=== PATIENT | female | born 1955 | race Caucasian/White ===

== ENCOUNTER 2018-06-15 13:53 | Inpatient (IN) | payer SELFPAY ==
[~2018-06-15] VITALS: Ht 157.4 cm; Wt 78.6 kg
--- NOTE | ~2018-06-15 | PR ---
[place], [place] PROGRESS NOTE NAME: MEKHI MULLER UNIT #: [id number] ROOM: [facility] DOCTOR: YEIMI ODOM,RAHUL BIRTHDATE: [birth year] DOS: 06/18/2018 CARDIOLOGY PROGRESS NOTE REASON FOR VISIT: Atrial fibrillation and valvular heart disease. HISTORY OF PRESENT ILLNESS: The patient is symptomatically feeling better, less short of breath. She is still on CPAP. Denies any chest pain or palpitations. Heart rates are somewhat higher. No PND, no orthopnea. REVIEW OF SYSTEMS: Review of the 10 systems negative except as mentioned above. RHYTHM STRIPS: The patient has been into atrial fibrillation with a rapid ventricular rate. PHYSICAL EXAMINATION: VITAL SIGNS: Blood pressure 137/73, pulse 114, respiration rate is 20. Weight 78.5 kg, BMI 31.7. GENERAL: Alert, comfortable, in no acute distress. HEAD AND NECK: Neck supple, no distended neck veins. No carotid bruit. CHEST: Symmetrical, nontender. LUNGS: Few scattered rhonchi. Fair air entry bilaterally. HEART: Irregularly irregular. Grade 2/6 systolic murmur as well as grade 1/6 mid diastolic murmur. No palpable thrills. ABDOMEN: Benign, nontender. Bowel sounds normal. EXTREMITIES: Showed 1+ edema. Distal pulses palpable. SKIN: Warm and dry. No cyanosis, no clubbing. RECTAL: Deferred. GENITOURINARY: Deferred. MEDICATIONS AND ALLERGIES: Reviewed and labs reviewed. IMPRESSION: 1. New onset atrial fibrillation with rapid ventricular rate. 2. Valvular heart disease with aortic stenosis and also mitral stenosis. Echo is suboptimal. 3. Acute on chronic diastolic heart failure. 4. Hypertension. 5. Respiratory failure. 6. Urinary tract infection. RECOMMENDATIONS: 1. Increase Cardizem to 90 mg q.8 hours as well as give one dose of digoxin 0.25 mg IV for rate control. I discussed with Dr. Wise, crocheter hand and he thinks that she is improving from a pulmonary standpoint and she may be ready for a transesophageal echocardiogram on Wednesday to assess her valvular heart disease. 2. Based on her ALLIE findings, she may need to be transferred to [facility]. 3. No family at bedside at the time of my examination. [place], [place] PROGRESS NOTE NAME: MEKHI MULLER UNIT #: [id number] ROOM: [facility] DOCTOR: YEIMI ODOM,RAHUL BIRTHDATE: [birth year] 4. Continue Xarelto for her atrial fibrillation. Above treatment and plan discussed with the patient and all the questions answered. RAHUL JALLOH MD CM:JES [phone] RAHUL JALLOH MD 06/18/182220 interface
--- NOTE | ~2018-06-15 | PR ---
[place], [place] PROGRESS NOTE NAME: MEKHI MULLER UNIT #: [id number] ROOM: 408 DOCTOR: EHSAN WELCH MD,ZENA BIRTHDATE: [birth year] DOS: 06/24/2018 SUBJECTIVE: The patient has been noted comfortable at this time, resting, sitting on the bed. Shortness of breath continued to resolve progressively. Denies symptoms of chest pain or hemoptysis. Continued intravenous therapeutic unfractionated heparin and Coumadin concomitantly. OBJECTIVE: VITAL SIGNS: Recorded as normal temperature, respirations 16, heart rate 77, blood pressure 129/87. Pulse ox saturation 2-1/2 liters nasal cannula was 93% saturation. HEENT: Examination shows head was atraumatic. Eyes nonicterus. NECK: Supple. CARDIOVASCULAR: S1, S2 is audible. LUNGS: Noted without any wheezing or crackles. ABDOMEN: Soft and nontender. Bowel sounds present. EXTREMITIES: Without acute edema. IMPRESSION: 1. Resolving pleural fluid with aortic and mitral valve stenosis. 2. Resolving pleural fluid. 3. Atrial fibrillation, currently noted well controlled. 4. Thrombus in the atrium as well as in the atrial appendage on the left side. 5. Resolving acute exacerbation of chronic obstructive pulmonary disease. PLAN OF MANAGEMENT: Continue anticoagulation for the patient. The INR today noted 1.8. The unfractionated therapeutic heparin dose has been adjusted for this patient based on the levels per protocol. All other supportive plan of management care. ZENA MOSER MD CM:PNTRANS [phone] ZENA WELCH MD 07/12/18 0956 interface
--- NOTE | ~2018-06-15 | PR ---
[place], [place] PROGRESS NOTE NAME: MEKHI MULLER UNIT #: [id number] ROOM: 408 DOCTOR: ZENA AVITIA MD BIRTHDATE: [birth year] DOS: 06/20/2018 SUBJECTIVE: The patient was noted comfortable at this time without any acute distress. She has been getting oxygen required 4.5 liter nasal cannula. Pulse oxygen saturation 96% saturation. However, she was noted with dyspnea with exertion and tachycardia. Plan for the transesophageal echocardiogram to be done today. OBJECTIVE: VITAL SIGNS: The blood pressure was recorded at 126/81, respiratory rate 22, heart rate of 101, and temperature normal. HEENT: Examination shows no new change. NECK: Supple. CARDIOVASCULAR: S1, S2 is audible. LUNGS: The patient was noted without any wheezing or crackles today. ABDOMEN: Soft and nontender. Bowel sounds present. EXTREMITIES: Without any acute edema. LABORATORY DATA: BMP today: BUN 33, creatinine 1.49, and glucose 285. CBC of the patient today was noted as normal. IMPRESSION: 1. The patient with resolving acute atrial fibrillation with rapid ventricular response. 2. Improving acute exacerbation of chronic obstructive pulmonary disease as well. 3. Congestive heart failure. The patient with biventricular failure. PLAN OF MANAGEMENT: Continuation of the current plan of management except reduction of Solu-Medrol will be started for the patient upon discharge with the tapering prednisone. In the meantime, continue bronchodilator therapy, plan of management. Further cardiac workup was noted stable at this time, pulmonary standpoint for the ALLIE. [place], [place] PROGRESS NOTE NAME: MEKHI MULLER UNIT #: [id number] ROOM: 408 DOCTOR: ZENA AVITIA MD BIRTHDATE: [birth year] ZENA MOSER MD CM:PNTRANS [phone] ZENA WELCH MD 07/12/18 0954 interface
--- NOTE | ~2018-06-15 | PR ---
[place], [place] PROGRESS NOTE NAME: MEKHI MULLER UNIT #: [id number] ROOM: [facility] DOCTOR: YEIMI ODOM,CANDIDAGE BIRTHDATE: [birth year] DOS: 06/19/2018 REASON FOR VISIT: Atrial fibrillation and valvular heart disease. SUBJECTIVE: The patient is feeling better. Denies any chest pain. Breathing is much improved. She is sitting at the bedside. No PND, no orthopnea, no palpitations, no dizziness. REVIEW OF SYSTEMS: Ten systems negative except as mentioned above. RHYTHM STRIPS: The patient in atrial fibrillation with mostly controlled ventricular rate. PHYSICAL EXAMINATION: VITAL SIGNS: Blood pressure 109/60, pulse 98, respiratory rate 16, weight 78.5 kilos. GENERAL: The patient is alert, oriented, no acute distress. HEENT: Pupils round, equal. No jaundice. Tongue was moist and pharynx clear. NECK: Supple. No distended neck vein. No carotid bruit. CHEST: Symmetrical, nontender. LUNGS: A few scattered rhonchi, but good air entry bilaterally. HEART: Irregularly irregular. No S3. Grade 2/6 systolic murmur as well as grade 1/6 mid diastolic murmur. ABDOMEN: Benign, nontender. Bowel sounds normal. EXTREMITIES: Showed no edema. Distal pulses are palpable. SKIN: Warm and dry. No cyanosis. No clubbing. RECTAL: Deferred. NEUROLOGIC: The patient is alert, oriented. No focal neurologic deficit. MEDICATIONS AND ALLERGIES: Reviewed. LABORATORY DATA: Reviewed as available. IMPRESSION: 1. Atrial fibrillation, new onset, currently rate controlled on Cardizem. The patient was on Xarelto anticoagulation. 2. Valvular heart disease with aortic stenosis and also mitral stenosis, but echo images are suboptimal. She was scheduled for a transesophageal echocardiogram tomorrow to further evaluate her significant valvular heart disease. She may need to be transferred to [facility] for further management. 3. Acute on chronic diastolic heart failure, stable. 4. Respiratory failure, stable. 5. Trace regurgitation. 6. Further cardiac recommendation based on the ALLIE findings. Risks and benefits of the transesophageal echocardiogram was discussed. There is no family at bedside at the time of my examination. [place], [place] PROGRESS NOTE NAME: MEKHI MULLER UNIT #: [id number] ROOM: [facility] DOCTOR: YEIMI ODOM,RAHUL BIRTHDATE: [birth year] RAHUL JALLOH MD CM:JES [phone] RAHUL JALLOH MD 06/19/18 2242 interface
--- NOTE | ~2018-06-15 | PR ---
[place], [place] PROGRESS NOTE NAME: MEKHI MULLER UNIT #: [id number] ROOM: [facility] DOCTOR: EHSAN WELCH MD,ZENA BIRTHDATE: [birth year] DOS: 06/21/2018 SUBJECTIVE: The patient noted comfortable at this time, resting on the chair. She has been still noted oxygen requirement nasal cannula. The reduction of the oxygen requirement, the patient was currently noted 2.5 liters nasal cannula. Denies symptoms of chest pain. The patient denies symptoms of fever or chills. OBJECTIVE: VITAL SIGNS: The patient normal temperature, respiratory rate 15, heart rate 94, blood pressure 133/93, pulse ox saturation as 97% saturation on 3.5 liter nasal cannula at rest. HEENT: Head was atraumatic. Eyes nonicterus. NECK: Supple. CARDIOVASCULAR: S1, S2 are audible. LUNGS: These were noted with [id number] compression bilaterally. ABDOMEN: Soft, nontender. EXTREMITIES: Without any acute edema. LABORATORY DATA: Transesophageal echocardiogram noted large thrombus present. Left atrial pacing measuring 2.1 x 2.3 cm, free floating in the left atrium, multiple thrombi. The patient visualized in the left atrial appendage as well. There was no evidence of a PFO or ASD. Moderate aortic stenosis noted. The patient with area of 1.12 cm2. Left ventricular ejection fraction noted 60%. IMPRESSION: 1. The patient with evidence of thrombus and thrombi noted in the left atrium as well as the left atrial appendage as well as moderate aortic stenosis. 2. Congestive heart failure, bilateral pleural fluid, resolving acute exacerbation of chronic obstructive pulmonary disease. 3. Atrial fibrillation as well. PLAN OF MANAGEMENT: Continue the current plan of management. The patient maximize the management of the cardiac therapy and other. The patient has been currently getting therapeutic anticoagulation. Other medical management from cardiac standpoint has been optimized. From the pulmonary standpoint, continue to use oxygen supplementation with improvement in the oxygenation. Decrease the Solu-Medrol to 20 mg daily from today. Further total of 3 doses and then possible discontinuation completely after that. Other supportive plan of management as well to be continued. Usual care. Additional treatment changes of the patient will be made for the patient based on progression of the illness. [place], [place] PROGRESS NOTE NAME: MEKHI MULLER UNIT #: [id number] ROOM: [facility] DOCTOR: EHSAN WELCH MD,ZENA BIRTHDATE: [birth year] ZENA MOSER MD CM:JES [phone] ZENA WELCH MD 06/22/18 0130 interface
--- NOTE | ~2018-06-15 | CON ---
[place], [place] REPORT OF CONSULTATION NAME: MEKHI MULLER UNIT #: [id number] ROOM: 408 DOCTOR: ZENA AVITIA MD BIRTHDATE: [birth year] DOS: 06/17/2018 PULMONARY CONSULTATION, EVALUATION, AND MANAGEMENT CONSULTATION REQUESTED BY: Hospitalist Service, which was completed on the date of 06/17/2018. REASON FOR CONSULTATION: To assess the patient's current shortness of breath. HISTORY OF PRESENT ILLNESS: This is a 62-year-old white female patient who has been admitted to the hospital. The patient was noted symptoms of abdominal pain described to the patient nausea, vomiting and diarrhea for a couple of days. The symptoms later associated with shortness of breath as well, which reported by the patient. She stated she does not have any cough, but developed cough since she has been hospitalized. She has been admitted to the hospital 06/15/2016. She was also noted symptoms of wheezing with tightness in the chest. She has been admitted to the hospital noted with hypoxia, which has been noted worsening from the baseline. She does use oxygen supplementation at home. She has been currently managed by salvager from [place]. REVIEW OF SYSTEMS: CONSTITUTIONAL: Fatigue and tiredness noted. Denies symptoms sense of fever or chills. EYES: Denies any burning, redness, or tenderness. EARS, NOSE, THROAT SYMPTOMS: Denies sore throat, hoarseness, otalgia, postnasal drainage or epistaxis. CARDIOVASCULAR: Denies anginal pain, edema of the lower extremities. GASTROINTESTINAL: Noted with nausea. There was no vomiting, abdominal pain was also reported by the patient, which appeared to be nonspecific the patient refused. There was no hematemesis, melena or hematochezia. GENITOURINARY: No dysuria, suprapubic pain, hematuria. MUSCULOSKELETAL: No acute joint pain, redness, or tenderness. SKIN: Denies abnormal lesions or rashes. CENTRAL NERVOUS SYSTEM: Denies any symptoms of dizziness, diplopia, or syncopal episode, tingling sensation of extremities. Remaining systems were reviewed. They were noted all negative. PAST MEDICAL HISTORY: Noted with a history of, 1. COPD. 2. Chronic hypoxic respiratory failure, use of oxygen supplementation. 3. Past history of nicotine use. 4. Hypothyroidism. 5. Hyperlipidemia. 6. Essential hypertension. SOCIAL HISTORY: The patient is , has 2 children, lives at home. She has been noted history of tobacco use since early teens, about half a pack of cigarettes per day that has been discontinued in 11/2015. Denies history of alcohol use or any illicit drug use. [place], [place] REPORT OF CONSULTATION NAME: MEKHI MULLER UNIT #: [id number] ROOM: 408 DOCTOR: ZENA AVITIA MD BIRTHDATE: [birth year] FAMILY HISTORY: The patient's father at younger age, the patient from sudden cardiac . The mother at age 75-year-old complications related to the hip fracture. PAST SURGICAL HISTORY: Fibrobronchoscopy in 2015. CURRENT MEDICATIONS: Administered Solu-Medrol 40 mg b.i.d., Cardizem oral, previously received intravenous Cardizem, DuoNeb q.4h., levothyroxine, simvastatin, enoxaparin, IV Zosyn, and other p.r.n. medications administration. DRUG ALLERGY HISTORY: No known drug allergies. PHYSICAL EXAMINATION: GENERAL: This is a 62-year-old female who has been currently noted awake and alert without any acute distress this morning, using oxygen supplementation 50% Venturi mask. Height of 5 feet 2 inches, weight 173 pounds and BMI 31. VITAL SIGNS: Temperature noted as normal. The patient since admission, respiratory rate 18-28, heart rate 113-86, blood pressure 163/72-115/79. Pulse oxygen saturation of the patient recorded as 5 liters nasal canula 98% saturation on room air was 80% oxygen saturation. HEENT: Examination shows head was atraumatic. Eyes nonicterus. NECK: Supple. CARDIOVASCULAR: S1, S2 is audible. LUNGS: The patient was noted with decreased sounds are noted with scattered crackles of the lung infiltration with wheezing. ABDOMEN: Soft. Mild to moderate, obese. Bowel sounds present. No tenderness. SKIN: Visible skin lesion or rashes. MUSCULOSKELETAL: Without any acute deformities. CENTRAL NERVOUS SYSTEM: No apparent focal neurologic deficit. Cranial nerves 2-12 intact. LABORATORY DATA: CBC 06/15/2018, WBC count was 11, hemoglobin 15.3, hematocrit 47.4 and platelet count was normal. CMP of the patient of 06/15/2018. The patient's BUN 21, creatinine 1.20 and sodium 142. AST minimally elevated 37. The ESR was 4. CT scan of the abdomen and pelvis that was done for the patient requires CT of the thorax patient's some area of atelectasis without any pleural effusions. Kidney stones were noted without any evidence of hydronephrosis. The cyst was also reported in the right upper pole of the right kidney rather. Duodenitis was also reported. Troponin noted minimally elevated 0.102 on admission. CBC on 06/16/2018, noted with WBC count 12.9, hemoglobin 15.4 and platelet count normal. CMP of 06/16/2018, BUN 21, creatinine 1.46. The BMP this morning, BUN 27, creatinine 1.70 and glucose 241. CBC for this patient that was done this morning was noted as normal. Urine culture was noted no bacterial growth. The chest x-ray of the patient, which was done, 1 view and 2 view was reviewed, shows increased interstitial marking haziness in the lower portion of the lungs. Hyperinflation changes were noted. IMPRESSION: 1. The patient who has been currently admitted to the hospital noted with acute [place], [place] REPORT OF CONSULTATION NAME: MEKHI MULLER UNIT #: [id number] ROOM: 408 DOCTOR: JAYA AVITIA MDM BIRTHDATE: [birth year] onset of atrial fibrillation as well as exacerbation of COPD, abdominal pain and secondary duodenitis. 2. Increased creatinine noted with acute kidney injury, most likely has intravascular volume depletion of acute tubular necrosis would be considered. 3. The patient with history of past tobacco use stating not smoking cigarettes since 2015. 4. Acute on chronic hypoxic respiratory failure. The patient with metabolic acidosis. PLAN OF MANAGEMENT: V/Q scan was done for patient that has been ruled out pulmonary embolism noted low probability of pulmonary embolism. CT scan of the chest will be necessary for the patient to assess the lung parenchyma, other etiology. Cardiology service noted in progress. However, the patient noted intermittently elevated. The patient treated with the Cardizem intravenously and orally. Follow the recommendation by the Cardiology Service and mild abnormal troponin. The patient at this time significance was unknown. Echocardiogram for the patient so far has not been done for patient no reported. Follow the rather assess the echocardiogram for this patient. Once completed. Monitor kidney function. She was given one dose of intravenous Lasix yesterday the patient with negative for balance of 2.2 liters. The antibiotic for the patient will be continued. The patient on to the infectious process is excluded. Usual care. GI consultation might be necessary recurrent duodenitis, which are reported on CT scan of the abdomen. Other additional treatment changes will be made based on progression of the illness. Repeat another blood gas for the patient today to assess the patient's acidosis of the patient as well. Thanks for allowing me to participate in the care of this patient. ZENA MOSER MD CM:CONSTR:REPORT OF CONSULTATION 0743 07/12/18 0959 interface
--- NOTE | ~2018-06-15 | EKG ---
[place], [place] ELECTROCARDIOGRAM REPORT NAME: MEKHI MULLER UNIT #: [id number] ROOM: [place] [address] DOCTOR: KALIE DRAFT REPORT BIRTHDATE: [birth year] [facility] Test Date: 2018-06-15 Test Time: 21:40:39 Pat Name: MEKHI MULLER Department: Room: [facility] [place] Gender: F Accounting Intern: Neela Ruby : 1955 Requested By: MARK SANDOVAL Order Number: [id number] Reading MD: Alvaro Wright MD Measurements Intervals [place] Rate: 125 P: MT: QRS: 96 QRSD: 131 T: 0 QT: 319 QTc: 460 Interpretive Statements Atrial fibrillation Right bundle branch block Baseline wander in lead(s) I,II,III,aVR,aVL,V1,V2,V4 Electronically Signed On 06-16-2018 20:20:51 PDT by Alvaro Wrigth MD CM:EKGRPT:ELECTROCARDIOGRAM REPORT 39 [id number] MARK WHITAKER DRAFT REPORT MARK SANDOVAL DO
--- NOTE | ~2018-06-15 | PR ---
[place], [place] PROGRESS NOTE NAME: MEKHI MULLER UNIT #: [id number] ROOM: 408 DOCTOR: ZENA AVITIA MD BIRTHDATE: [birth year] DOS: 06/23/2018 SUBJECTIVE: She has been noted comfortable at this time. Continues to show stability of respiratory status. Shortness of breath, improving. There was no coughing, wheezing, chest pain, reported continued on the therapeutic dose of unfractionated heparin. She was also getting Coumadin as well. This morning, the patient was seen, she was sitting on the side of bed. The patient is using oxygen supplementation nasal cannula. PHYSICAL EXAMINATION: VITAL SIGNS: Respiratory recorded as 18, temperature normal, heart rate 83, blood pressure 142/78. HEENT: No new change. NECK: Supple. CARDIOVASCULAR: S1, S2 audible. LUNGS: Noted without any wheeze or crackle. Breaths are noted mild to moderate decreased bilaterally. ABDOMEN: Soft, nontender. LABORATORY DATA: PT/INR 1.2. PTT was noted as therapeutic at 72. IMPRESSION: 1. The patient with aortic stenosis. The patient with mitral valve stenosis, mobile thrombus in the left atrium and couple of thrombi in the left atrial appendage was also noted. 2. Congestive heart failure secondary to small bilateral pleural fluid. 3. Acute exacerbation of chronic obstructive pulmonary disease that has been also resolving. PLAN OF MANAGEMENT: No change in plan of management. Continue anticoagulation by Dr. Wilson, Cardiology. Case will be presented to the Thoracic Surgery team for the valve replacement. In the meantime, no changes in treatment will be necessary. Steroids will be discontinued in the next couple of days. [place], [place] PROGRESS NOTE NAME: MEKHI MULLER UNIT #: [id number] ROOM: 408 DOCTOR: ZENA AVITIA MD BIRTHDATE: [birth year] ZENA MOSER MD CM:PNTRANS [phone] ZENA WELCH MD 06/23/18 1428 interface
--- NOTE | ~2018-06-15 | PR ---
[place], [place] PROGRESS NOTE NAME: MEKHI MULLER UNIT #: [id number] ROOM: 408 DOCTOR: ZENA AVITIA MD BIRTHDATE: [birth year] DOS: 06/19/2018 PULMONARY PROGRESS NOTE SUBJECTIVE: The patient was noted comfortable at this time, resting in the bed, still noted dyspnea with exertion and hypoxia. Using oxygen supplementation 4 to 4-1/2 liter nasal cannula. Denies symptoms of chest pain, abdominal pain. Tachycardia noted with exertion with atrial fibrillation, currently managed with the medications. OBJECTIVE: VITAL SIGNS: Normal temperature, respiratory rate of 16, heart rate of 95-112, blood pressure 109/60-102/75. Her pulse oxygen saturation, on 4-5 liters nasal cannula was 97% saturation. HEENT: Examination shows head was atraumatic. Eyes nonicterus. NECK: Supple. CARDIOVASCULAR: S1, S2 is audible. LUNGS: The patient was noted without any wheezing or crackle. Breaths are noted mildly decreased bilaterally. ABDOMEN: Soft, nontender, bowel sounds present. EXTREMITIES: The patient noted without any acute edema. IMPRESSION: 1. The patient with the pulmonary hypertension noted with right ventricle dysfunction as well as acute respiratory failure, congestive heart failure, bilateral small pleural effusions. 2. Chronic obstructive pulmonary disease exacerbation as well. PLAN OF MANAGEMENT: The patient's dose of Solu-Medrol has been decreased to once a day. Continuation of bronchodilators, oxygen supplementation. Other therapy, plan of management as in progress. Further cardiac workup plan for tomorrow, transesophageal echocardiogram. In the meantime, current therapy as previously in progress will be continued. Usual care. [place], [place] PROGRESS NOTE NAME: MEKHI MULLER UNIT #: [id number] ROOM: 408 DOCTOR: ZENA AVITIA MD BIRTHDATE: [birth year] ZENA MOSER MD CM:PNTRANS [phone] ZENA WELCH MD 07/12/18 0953 interface
--- NOTE | ~2018-06-15 | CON ---
[place], [place] REPORT OF CONSULTATION NAME: MEKHI MULLER UNIT #: [id number] ROOM: 408 DOCTOR: INES WADE MD BIRTHDATE: [birth year] DOS: 06/16/2018 REASON FOR CONSULTATION: Atrial fibrillation with rapid ventricular response. HISTORY OF PRESENT ILLNESS: The patient is a 62-year-old woman whom I initially saw when she was hospitalized with pneumonia in December of 2015. At that time, she had hypertension, hyperlipidemia, history of cigarette abuse and a strong family history of coronary artery disease. She was found to have pneumonia and vascular congestion in the hospital. An echocardiogram did demonstrate aortic stenosis and mitral stenosis consistent with rheumatic heart disease. Her rheumatic disease was not severe enough to require immediate care and therefore, I stated that she should have her pneumonia cleared completely before we proceeded with any further cardiac evaluation. Unfortunately, the patient was lost to follow up and never came back for reassessment. She presents now with nausea, dry heaves, poor appetite, loose stools, lightheadedness and what she felt was a viral gastroenteritis. Her had a similar constellation of symptoms and this began while they were on vacation. Her symptoms, however, did not improve and therefore she came to the Emergency Room with persistent abdominal pain. She was found to have atrial fibrillation, which was a new rhythm for her. We were therefore asked to see her again. At the present time, her atrial fibrillation rate has been controlled and she is feeling better. PAST MEDICAL HISTORY: Includes: 1. Hypertension. 2. Hyperlipidemia. 3. Hypothyroidism. 4. Obesity. 5. Echocardiogram 01/06/2016, technically difficult study. Mild aortic stenosis with estimated valve area 1.6 cm2 and mean transvalvular gradient 16 mmHg. Severe mitral stenosis with mean transvalvular gradient 30 mmHg. Estimated valve area of 0.7 cm2, normal left ventricular size with mild concentric left ventricular hypertrophy, normal regional wall motion and systolic function. MEDICATIONS: Prior to admission, levothyroxine 112 mcg daily and simvastatin 20 mg daily. ALLERGIES: The patient has no known drug allergies. REVIEW OF SYSTEMS: The patient denies diplopia or loss of vision. She does have a chronic dyspnea. She denies focal weakness, lightheadedness or syncope. She did have nausea, but no vomiting. She denies any hemoptysis or hematemesis. She denies any chills, but did have some fever. She denies any skin rashes. She does not recall having rheumatic fever as a child. She denies any blood in her stools. She has had loose stools. She denies any blood in her urine. She does have peripheral edema, which has gotten worse lately. She has not had any heat or cold intolerance and denies any polyuria or polydipsia. Remainder of [place], [place] REPORT OF CONSULTATION NAME: MEKHI MULLER UNIT #: [id number] ROOM: [facility] DOCTOR: INES WADE MD BIRTHDATE: [birth year] the review of systems is negative except as noted above. FAMILY HISTORY: Her father had a sudden cardiac in his early 40s. Her mother at age 75 from hip fracture complications. SOCIAL HISTORY: The patient quit smoking about 2 years ago. She does not consume alcohol or illicit drugs. PHYSICAL EXAMINATION: GENERAL: The patient is an overweight white female who is awake, alert and oriented. VITAL SIGNS: Pulse is 110 and irregularly irregular, blood pressure is 122/71. She is afebrile. She weighs 78.6 kg and has a body mass index 31.7. HEENT: Normocephalic and atraumatic. Extraocular muscles are intact. Sclerae are clear. Pupils are equal, round and react to light. The oral mucosa is moist. Tongue is midline. NECK: Supple. She does have mild jugular distention with hepatojugular reflux present. Carotids are full without bruits. There are no neck or supraclavicular masses, no thyromegaly. LUNGS: Respirations are slightly labored at rest. She does have decreased breath sounds at the bases. There are a few scattered rales. She has no presacral edema or chest wall tenderness. CARDIOVASCULAR: Her heart has an irregularly irregular rhythm. She does not have a third or fourth heart sound. She does have a grade 2/6 diastolic rumble. She has a grade 2/6 holosystolic murmur as well along the left sternal border. ABDOMEN: Soft and normally active. She is mildly tender in the epigastrium, but there is no mass or rebound. EXTREMITIES: Showed trace edema. Peripheral pulses are palpable in the feet. Her electrocardiogram shows atrial fibrillation with a rapid ventricular response. LABORATORY DATA: Hemoglobin is 15.4, white count 12,900, platelet count 217,000. Sodium 140, potassium 4.4, chloride 108, CO2 of 23, BUN 21, creatinine 1.46. Troponin level is mildly elevated at 0.103. IMPRESSIONS: 1. Newly documented atrial fibrillation with rapid ventricular response. 2. Probable rheumatic heart disease with aortic stenosis and mitral stenosis. 3. History of hypertension. 4. History of hyperlipidemia. 5. History of hypothyroidism. PLAN: For now, we will continue to control her heart rate and anticoagulate her with Lovenox. I will plan on proceeding with a transesophageal echocardiogram in the next 24 hours. Once we have a better idea of the structure of her valves. We can determine whether or not she will require a cardiac catheterization and valve repair or replacement. I thank the hospitalist physicians for asking our advice regarding her care. [place], [place] REPORT OF CONSULTATION NAME: MEKHI MULLER UNIT #: [id number] ROOM: 408 DOCTOR: INES WADE MD BIRTHDATE: [birth year] INES WADE MD CM:CONSTR:REPORT OF CONSULTATION 1135 07/11/18 1145 interface
--- NOTE | ~2018-06-15 | PR ---
[place], [place] PROGRESS NOTE NAME: MEKHI MULLER UNIT #: [id number] ROOM: [facility] DOCTOR: ZENA AVITIA MD BIRTHDATE: [birth year] DOS: 06/18/2018 PULMONARY PROGRESS NOTE SUBJECTIVE: The patient reported reduction in symptoms of shortness of breath, oxygen requirement has been also decreased in the last 24 hours to 4 liters nasal cannula, titrated this afternoon and assessed the patient. The patient was noted with reduction in shortness of breath. The cough has been noted mild without any sputum expectoration. Denies any symptoms of acute chest pain. Denies abdominal pain, nausea, vomiting. Still noted tachycardia with rapid ventricular response. The patient has been getting management of that with intravenous Cardizem. She denies symptoms of edema or pain of the lower extremities. Remaining review of systems were noted all negative. OBJECTIVE: VITAL SIGNS: Normal temperature, respiratory rate 22, heart rate 114 with atrial fibrillation, rapid ventricular response, blood pressure 137/73-121/81. Pulse oxygen saturation on Venturi flow of oxygen was noted as 95% on 30% oxygen at 4 liters at rest, currently noted as 94% saturation. HEENT: Shows head was atraumatic. Eyes nonicterus. NECK: Supple. CARDIOVASCULAR: S1, S2 audible. LUNGS: The patient was noted with improving aeration of the lung. There were no crackles. ABDOMEN: Soft, nontender. EXTREMITIES: Without any acute edema. MUSCULOSKELETAL: Without any acute deformities. LABORATORY DATA: Chest x-ray of the patient that was completed yesterday shows small bilateral pleural fluids were noted bilaterally, greater on the right than the left side with interstitial increased marking for the patient with ground-glass opacity suggestive of pulmonary venous congestion. Elevated pulmonary artery pressure was suggested because of the large diameter of the main pulmonary arterial trunk. BMP this morning; glucose of 253, BUN 34, creatinine 1.71, potassium 3.3. CBC on 06/18/2018 - WBC count 14.9, hemoglobin and hematocrit normal, and platelet count was normal. IMPRESSION: 1. The patient will be currently noted with acute congestive heart failure, bilateral pleural fluid, atrial fibrillation with rapid ventricular response. 2. Acute exacerbation of chronic obstructive pulmonary disease as well, responding to treatment. Bilateral pleural fluid, the patient is not needing any thoracentesis at this time because of the small size. Conservative treatment will be continued. 3. The patient most likely with chronic kidney disease, which remains stable as well. 4. Atrial fibrillation noted with intermittent rapid ventricular response. PLAN OF MANAGEMENT: Continue to titrate oxygen down to maintain pulse oxygen 92% or greater. Continue current Lasix 40 mg intravenous b.i.d. [place] PROGRESS NOTE NAME: MEKHI MULLER UNIT #: [id number] ROOM: [facility] DOCTOR: ZENA AVITIA MD BIRTHDATE: [birth year] dose will be decreased to 40 mg daily dosing. Continue medical management of the patient's atrial fibrillation with rapid ventricular response. The patient was planned for a transesophageal echocardiogram on Wednesday with electrical cardioversion done for the patient and after that, to be assessed by the Cardiology Services. In the meantime, maximize her pulmonary status. Usual care. Other supportive therapy, plan of management. Supplementation of normal electrolytes. Usual care, other therapy, plan of management and care plan. ZENA MOSER MD CM:PNTRANS [id number] ZENA WELCH MD 06/18/18 [id number] interface
--- NOTE | ~2018-06-15 | PR ---
[place], [place] PROGRESS NOTE NAME: MEKHI MULLER UNIT #: [id number] ROOM: 408 DOCTOR: EHSAN WELCH MD,ZENA BIRTHDATE: [birth year] DOS: 06/22/2018 SUBJECTIVE: The patient has been noted comfortable at this time, resting heart rate was noted well controlled with atrial fibrillation, heart rate noted about in the mid 60s and shortness of breath tend to resolve. The Solu-Medrol has been going to be decreased. She has been getting anticoagulation as well because of the large thrombus in the left atrium. OBJECTIVE: VITAL SIGNS: The patient showed normal temperature, respiratory rate 18, pulse of 67 and blood pressure of 114/78. The pulse oxygen saturation noted as 99% saturation on 3 liters nasal cannula. HEENT: Examination shows head was atraumatic. Eyes nonicterus. NECK: Supple. CARDIOVASCULAR: S1, S2 audible. LUNGS: The patient was noted without any wheezing or crackles. ABDOMEN: Soft, nontender. EXTREMITIES: Without any acute edema. LABORATORY DATA: BMP today: BUN 35, creatinine normal, glucose 210 and CO2 37. IMPRESSION: The patient was being currently noted with resolving acute hypoxic respiratory failure, exacerbation of chronic obstructive pulmonary disease, congestive heart failure, atrial fibrillation with rapid ventricular response noted current controlled range. Thrombus in the left atrium as well, which has been currently treated with anticoagulation. PLAN OF MANAGEMENT: Continue medical management cardiac problem per Cardiology Services. The heparin dose has been adjusted. The patient's PTT today was noted at greater than 250 per protocol. The steroid dose continue to be decreased and will be discontinued in the next few days. ZENA MOSER MD CM:PNTRANS [id number] ZENA WELCH MD 07/12/18 0955 interface
[~2018-06-15 13:53] MED LIST: AMLODIPINE BESYL5 MG PO; DOXYCYCLINE100 M3 PO; HYDR25T PO; LEVOTHYROXINE112 MCG PO; NICOTINE PATCH1 EAC1 TD; PREDNISONE10 MG PO; SIMVASTATIN20 MG PO; VENTOLIN H0.09 MG/AC INH; VITAMIN D31000 IU PO; ZYRTEC10 M2 PO
[2018-06-15 13:56] VITALS: BP 143/98
[2018-06-15 14:39] LABS: BASO # 0.1 10*3/uL (0.0-0.1); BASO % 0.7 % (0.0-1.0); EOS % 0.4 % (1.0-4.0); HEMATOCRIT 47.4 % (37.0-47.0); HEMOGLOBIN 15.3 g/dl (12.0-16.0); LYMPH # 1.9 10*3/uL (1.3-4.4); LYMPH % 16.9 % (27.0-41.0); MEAN CORPUSCULAR HGB 29.7 pg (27.0-31.0); MEAN CORPUSCULAR HGB CONC 32.3 g/dl (33.0-37.0); MEAN PLATELET VOLUME 11.2 fl (9.6-12.3); MONO # 0.8 10*3/uL (0.1-1.0); MONO % 7.4 % (3.0-9.0); NEUT # 8.2 10*3/uL (2.3-7.9); NEUT % 74.1 % (47.0-73.0); PLATELET COUNT AUTOMATED 227 10*3/uL (130-400); RED BLOOD COUNT 5.15 10*6/uL (4.10-5.10); RED CELL DISTRI WIDTH 14.4 % (0-14.5)
[2018-06-15 14:54] LABS: ALBUMIN 3.7 gm/dl (3.1-4.5); CREATININE 1.2 mg/dL (0.55-1.02); TOTAL PROTEIN 6.8 gm/dL (6.4-8.2)
[2018-06-15 15:29] LABS: BILIRUBIN 1+ (NEGATIVE); BLOOD TRACE-INTACT (NEGATIVE); CLARITY CLEAR (CLEAR); COLOR YELLOW (YELLOW); GLUCOSE NEGATIVE (NEGATIVE); KETONE NEGATIVE (NEGATIVE); LEUKO ESTERASE TRACE (NEGATIVE); NITRITE NEGATIVE (NEGATIVE); PH 5.5 (5.0-9.0); SPECIFIC GRAVITY >= 1.030 (1.005-1.030)
[2018-06-15 15:41] LABS: RBC 0-2 rbc/hpf (0-2)
[2018-06-15 15:42] LABS: BACTERIA 2+; MUCOUS 1+
[2018-06-15 16:45] VITALS: BP 138/73
[2018-06-15 20:00] VITALS: BP 103/69
[2018-06-16] VITALS (11 sets, daily range): BP systolic 95–163; BP diastolic 47–93
[2018-06-16 06:23] LABS: BASO # 0.1 10*3/uL (0.0-0.1); BASO % 0.5 % (0.0-1.0); EOS # 0.1 10*3/uL (0.0-0.4); EOS % 0.5 % (1.0-4.0); HEMATOCRIT 49.8 % (37.0-47.0); HEMOGLOBIN 15.4 g/dl (12.0-16.0); LYMPH # 2.4 10*3/uL (1.3-4.4); LYMPH % 18.2 % (27.0-41.0); MEAN CORPUSCULAR HGB 29.4 pg (27.0-31.0); MEAN CORPUSCULAR HGB CONC 30.9 g/dl (33.0-37.0); MEAN PLATELET VOLUME 11.3 fl (9.6-12.3); MONO # 1.2 10*3/uL (0.1-1.0); MONO % 9.1 % (3.0-9.0); NEUT # 9.2 10*3/uL (2.3-7.9); NEUT % 71.2 % (47.0-73.0); PLATELET COUNT AUTOMATED 217 10*3/uL (130-400); RED BLOOD COUNT 5.24 10*6/uL (4.10-5.10); RED CELL DISTRI WIDTH 14.6 % (0-14.5); WHITE BLOOD COUNT 12.9 10*3/uL (4.8-10.8)
[2018-06-16 06:42] LABS: ALBUMIN 3.4 gm/dl (3.1-4.5); CREATININE 1.46 mg/dL (0.55-1.02); FREE T4 1.59 ng/dl (0.76-1.46); PHOSPHOROUS 4.9 mg/dL (2.5-4.9); POTASSIUM 4.4 mmol/L (3.5-5.1); TOTAL PROTEIN 6.8 gm/dL (6.4-8.2)
[2018-06-16 06:45] LABS: ACT PARTIAL THROMBO TIME 27.2 SECONDS (20.8-31.5); INTERNATIONAL NORM RATIO 1.2 (2.0-3.5)
[2018-06-16 06:47] LABS: THYROID STIM HORMONE (HS) 0.293 uIU/ml (0.358-4.75)
[2018-06-16 07:34] LABS: VITAMIN D, 25-HYDROXY 15.8 ng/mL (30-100)
[2018-06-16 14:04] LABS: ABG HCO3 16.8 mmol/l (22-26); ARTERIAL BLOOD GAS PCO2 32.9 mmHg (35-45); ARTERIAL BLOOD GAS PH 7.327 (7.35-7.45); ARTERIAL BLOOD GAS PO2 74.6 mmHg (80-90)
[2018-06-16 14:17] LABS: ABG BASE EXCESS -7.8 mmol/L (-2.0-2.0)
[2018-06-17] VITALS (9 sets, daily range): BP systolic 90–126; BP diastolic 45–80
[2018-06-17 06:03] LABS: CREATININE 1.7 mg/dL (0.55-1.02); POTASSIUM 3.9 mmol/L (3.5-5.1)
[2018-06-17 06:10] LABS: HEMATOCRIT 45.1 % (37.0-47.0); HEMOGLOBIN 14.3 g/dl (12.0-16.0); MEAN CELL VOLUME 93.2 fl (81.0-99.0); MEAN CORPUSCULAR HGB 29.5 pg (27.0-31.0); MEAN CORPUSCULAR HGB CONC 31.7 g/dl (33.0-37.0); MEAN PLATELET VOLUME 11.6 fl (9.6-12.3); PLATELET COUNT AUTOMATED 193 10*3/uL (130-400); RED BLOOD COUNT 4.84 10*6/uL (4.10-5.10); RED CELL DISTRI WIDTH 14.6 % (0-14.5); WHITE BLOOD COUNT 7.1 10*3/uL (4.8-10.8)
[2018-06-17 07:19] LABS: BASOPHILS 1 % (0-1); PLATELET SUFFICIENCY NORMAL (NORMAL); TOTAL CELLS COUNTED 100 #CELLS
[2018-06-17 08:04] LABS: ABG HCO3 18.6 mmol/l (22-26); ABG O2 SATURATION 91.6 % (95-97); ARTERIAL BLOOD GAS PCO2 35.9 mmHg (35-45); ARTERIAL BLOOD GAS PH 7.33 (7.35-7.45); ARTERIAL BLOOD GAS PO2 66.5 mmHg (80-90)
[2018-06-17 08:21] LABS: ABG BASE EXCESS -6.4 mmol/L (-2.0-2.0)
[2018-06-18] VITALS (7 sets, daily range): BP systolic 103–170; BP diastolic 54–81
[2018-06-18 06:05] LABS: HEMATOCRIT 45.2 % (37.0-47.0); HEMOGLOBIN 14.3 g/dl (12.0-16.0); MEAN CELL VOLUME 93.2 fl (81.0-99.0); MEAN CORPUSCULAR HGB 29.5 pg (27.0-31.0); MEAN CORPUSCULAR HGB CONC 31.6 g/dl (33.0-37.0); MEAN PLATELET VOLUME 11.4 fl (9.6-12.3); PLATELET COUNT AUTOMATED 201 10*3/uL (130-400); RED BLOOD COUNT 4.85 10*6/uL (4.10-5.10); RED CELL DISTRI WIDTH 15.1 % (0-14.5); WHITE BLOOD COUNT 14.9 10*3/uL (4.8-10.8)
[2018-06-18 06:24] LABS: CREATININE 1.71 mg/dL (0.55-1.02); POTASSIUM 3.3 mmol/L (3.5-5.1)
[2018-06-18 06:45] LABS: PLATELET SUFFICIENCY NORMAL (NORMAL); TOTAL CELLS COUNTED 100 #CELLS
[2018-06-19] VITALS (7 sets, daily range): BP systolic 92–130; BP diastolic 58–80
[2018-06-19 06:03] LABS: HEMATOCRIT 43.2 % (37.0-47.0); HEMOGLOBIN 13.9 g/dl (12.0-16.0); MEAN CELL VOLUME 92.7 fl (81.0-99.0); MEAN CORPUSCULAR HGB 29.8 pg (27.0-31.0); MEAN CORPUSCULAR HGB CONC 32.2 g/dl (33.0-37.0); MEAN PLATELET VOLUME 11.5 fl (9.6-12.3); PLATELET COUNT AUTOMATED 199 10*3/uL (130-400); RED BLOOD COUNT 4.66 10*6/uL (4.10-5.10); RED CELL DISTRI WIDTH 15.5 % (0-14.5); WHITE BLOOD COUNT 13.5 10*3/uL (4.8-10.8)
[2018-06-19 06:15] LABS: CREATININE 1.51 mg/dL (0.55-1.02); POTASSIUM 3.2 mmol/L (3.5-5.1)
[2018-06-19 07:23] LABS: PLATELET SUFFICIENCY NORMAL (NORMAL); TOTAL CELLS COUNTED 100 #CELLS
[2018-06-20] VITALS (10 sets, daily range): BP systolic 100–146; BP diastolic 66–87
[2018-06-20 06:11] LABS: CREATININE 1.49 mg/dL (0.55-1.02); POTASSIUM 3.7 mmol/L (3.5-5.1)
[2018-06-20 06:14] LABS: BASO % 0.1 % (0.0-1.0); HEMATOCRIT 46.1 % (37.0-47.0); HEMOGLOBIN 14.5 g/dl (12.0-16.0); LYMPH # 0.5 10*3/uL (1.3-4.4); LYMPH % 4.8 % (27.0-41.0); MEAN CELL VOLUME 93.7 fl (81.0-99.0); MEAN CORPUSCULAR HGB 29.5 pg (27.0-31.0); MEAN CORPUSCULAR HGB CONC 31.5 g/dl (33.0-37.0); MEAN PLATELET VOLUME 11.4 fl (9.6-12.3); MONO # 0.7 10*3/uL (0.1-1.0); MONO % 6.7 % (3.0-9.0); NEUT # 9.2 10*3/uL (2.3-7.9); NEUT % 87.7 % (47.0-73.0); PLATELET COUNT AUTOMATED 197 10*3/uL (130-400); RED BLOOD COUNT 4.92 10*6/uL (4.10-5.10); RED CELL DISTRI WIDTH 15.5 % (0-14.5); WHITE BLOOD COUNT 10.5 10*3/uL (4.8-10.8)
[2018-06-21] VITALS: BP 133/74
[2018-06-21 04:00] VITALS: BP 128/61
[2018-06-21 04:57] LABS: CREATININE 1.24 mg/dL (0.55-1.02); POTASSIUM 3.5 mmol/L (3.5-5.1)
[2018-06-21 05:47] LABS: BASO % 0.1 % (0.0-1.0); HEMATOCRIT 45.9 % (37.0-47.0); HEMOGLOBIN 14.5 g/dl (12.0-16.0); LYMPH # 0.4 10*3/uL (1.3-4.4); MEAN CELL VOLUME 93.9 fl (81.0-99.0); MEAN CORPUSCULAR HGB 29.7 pg (27.0-31.0); MEAN CORPUSCULAR HGB CONC 31.6 g/dl (33.0-37.0); MEAN PLATELET VOLUME 11.4 fl (9.6-12.3); MONO # 0.6 10*3/uL (0.1-1.0); MONO % 7.5 % (3.0-9.0); NEUT # 6.8 10*3/uL (2.3-7.9); NEUT % 86.9 % (47.0-73.0); PLATELET COUNT AUTOMATED 173 10*3/uL (130-400); RED BLOOD COUNT 4.89 10*6/uL (4.10-5.10); RED CELL DISTRI WIDTH 15.3 % (0-14.5); WHITE BLOOD COUNT 7.9 10*3/uL (4.8-10.8)
[2018-06-21 08:00] VITALS: BP 133/93
[2018-06-21 08:47] LABS: ACT PARTIAL THROMBO TIME 24.5 SECONDS (20.8-31.5); INTERNATIONAL NORM RATIO 1.3 (2.0-3.5)
[2018-06-21 12:00] VITALS: BP 129/78
[2018-06-21 16:00] VITALS: BP 134/86
[2018-06-21 20:00] VITALS: BP 123/53; BP 123/83
[2018-06-22] VITALS: BP 121/78
[2018-06-22 04:00] VITALS: BP 114/78
[2018-06-22 05:45] LABS: BASO % 0.1 % (0.0-1.0); HEMATOCRIT 46.1 % (37.0-47.0); HEMOGLOBIN 14.6 g/dl (12.0-16.0); LYMPH # 0.5 10*3/uL (1.3-4.4); LYMPH % 4.4 % (27.0-41.0); MEAN CELL VOLUME 93.1 fl (81.0-99.0); MEAN CORPUSCULAR HGB 29.5 pg (27.0-31.0); MEAN CORPUSCULAR HGB CONC 31.7 g/dl (33.0-37.0); MEAN PLATELET VOLUME 11.4 fl (9.6-12.3); MONO # 0.8 10*3/uL (0.1-1.0); MONO % 6.8 % (3.0-9.0); NEUT # 10.6 10*3/uL (2.3-7.9); NEUT % 88.1 % (47.0-73.0); PLATELET COUNT AUTOMATED 170 10*3/uL (130-400); RED BLOOD COUNT 4.95 10*6/uL (4.10-5.10); RED CELL DISTRI WIDTH 15.1 % (0-14.5)
[2018-06-22 05:50] LABS: BUN 35 mg/dl (7-24); CHLORIDE 92 mmol/L (98-107); CREATININE 0.96 mg/dL (0.55-1.02); POTASSIUM 3.5 mmol/L (3.5-5.1); SODIUM 137 mmol/L (136-145)
[2018-06-22 06:01] LABS: INTERNATIONAL NORM RATIO 1.2 (2.0-3.5)
[2018-06-22 06:04] LABS: ACT PARTIAL THROMBO TIME > 250.0 SECONDS (20.8-31.5)
[2018-06-22 08:00] VITALS: BP 150/86
[2018-06-22 12:00] VITALS: BP 140/76
[2018-06-22 16:00] VITALS: BP 138/84
[2018-06-22 20:00] VITALS: BP 147/81
[2018-06-23] VITALS: BP 142/78
[2018-06-23 06:33] LABS: BASO % 0.3 % (0.0-1.0); MEAN CORPUSCULAR HGB 29.5 pg (27.0-31.0); MEAN CORPUSCULAR HGB CONC 31.8 g/dl (33.0-37.0); MEAN PLATELET VOLUME 11.3 fl (9.6-12.3); MONO # 1.2 10*3/uL (0.1-1.0); MONO % 7.7 % (3.0-9.0); NEUT # 13.6 10*3/uL (2.3-7.9); NEUT % 85.2 % (47.0-73.0); PLATELET COUNT AUTOMATED 195 10*3/uL (130-400); RED BLOOD COUNT 5.69 10*6/uL (4.10-5.10); WHITE BLOOD COUNT 15.9 10*3/uL (4.8-10.8)
[2018-06-23 06:35] LABS: CREATININE 1.2 mg/dL (0.55-1.02); HEMATOCRIT 52.9 % (37.0-47.0); HEMOGLOBIN 16.8 g/dl (12.0-16.0); POTASSIUM 3.6 mmol/L (3.5-5.1)
[2018-06-23 06:59] LABS: ACT PARTIAL THROMBO TIME 72.1 SECONDS (20.8-31.5); INTERNATIONAL NORM RATIO 1.2 (2.0-3.5)
[2018-06-23 12:00] VITALS: BP 131/73
[2018-06-23 16:00] VITALS: BP 124/78
[2018-06-23 20:00] VITALS: BP 109/74
[2018-06-24] VITALS: BP 129/87
[2018-06-24 06:28] LABS: BASO % 0.2 % (0.0-1.0); EOS % 0.1 % (1.0-4.0); HEMATOCRIT 51.3 % (37.0-47.0); HEMOGLOBIN 16.7 g/dl (12.0-16.0); LYMPH # 0.9 10*3/uL (1.3-4.4); LYMPH % 5.1 % (27.0-41.0); MEAN CELL VOLUME 91.3 fl (81.0-99.0); MEAN CORPUSCULAR HGB 29.7 pg (27.0-31.0); MEAN CORPUSCULAR HGB CONC 32.6 g/dl (33.0-37.0); MEAN PLATELET VOLUME 11.5 fl (9.6-12.3); MONO # 1.2 10*3/uL (0.1-1.0); MONO % 7.2 % (3.0-9.0); NEUT # 14.4 10*3/uL (2.3-7.9); NEUT % 86.6 % (47.0-73.0); PLATELET COUNT AUTOMATED 162 10*3/uL (130-400); RED BLOOD COUNT 5.62 10*6/uL (4.10-5.10); RED CELL DISTRI WIDTH 14.6 % (0-14.5); WHITE BLOOD COUNT 16.6 10*3/uL (4.8-10.8)
[2018-06-24 06:32] LABS: INTERNATIONAL NORM RATIO 1.8 (2.0-3.5)
[2018-06-24 06:55] LABS: CREATININE 1.44 mg/dL (0.55-1.02); POTASSIUM 3.9 mmol/L (3.5-5.1)
[2018-06-24 12:00] VITALS: BP 98/70
[2018-06-24] MEDS ORDERED: KLOR-CON M2020 ME1 PO (14:22)
[2018-06-24] MEDS ORDERED: FUROSEMIDE20 M1 PO (14:22)
[2018-06-24] MEDS ORDERED: COUMADIN5 M2 PO (14:22)
[2018-06-24] MEDS ORDERED: LOPRESSOR25 MG PO (14:22)
[2018-06-24] MEDS ORDERED: DILTIAZEM HYDR180 M2 PO (14:22)
== END 2018-06-24 16:36 | disposition home or self-care (01) | DRG 682 ==
LOC: ED 13:53 → EDHOLD 17:34 → 4E 17:34 → ICCU 06-16 14:09 → 4E 06-22 13:17
PROVIDERS: Internal Medicine; Internal Medicine Cardiovascular Disease; Internal Medicine Critical Care Medicine; Physician Assistant; Student in an Organized Health Care Education/Training Program
PROC: B24BZZ4 Ultrasonography of Heart with Aorta, Transesophageal (ICD-10-PCS; principal; 2018-06-20)
DX: N17.0 Acute kidney failure with tubular necrosis (principal); J96.21 Acute and chronic respiratory failure with hypoxia; I50.33 Acute on chronic diastolic (congestive) heart failure; I26.99 Other pulmonary embolism without acute cor pulmonale; I13.0 Hypertensive heart and chronic kidney disease with heart failure and stage 1 through stage 4 chronic kidney disease, or unspecified chronic kidney disease; J44.1 Chronic obstructive pulmonary disease with (acute) exacerbation; E87.2 Acidosis; N30.01 Acute cystitis with hematuria; I08.0 Rheumatic disorders of both mitral and aortic valves; I51.3 Intracardiac thrombosis, not elsewhere classified; N18.2 Chronic kidney disease, stage 2 (mild); I48.91 Unspecified atrial fibrillation; K29.80 Duodenitis without bleeding; N20.0 Calculus of kidney; I50.82 Biventricular heart failure; I27.20 Pulmonary hypertension, unspecified; E80.6 Other disorders of bilirubin metabolism; E87.6 Hypokalemia; E11.22 Type 2 diabetes mellitus with diabetic chronic kidney disease; E03.9 Hypothyroidism, unspecified; E66.9 Obesity, unspecified; R74.8 Abnormal levels of other serum enzymes; E55.9 Vitamin D deficiency, unspecified; E11.65 Type 2 diabetes mellitus with hyperglycemia; R80.9 Proteinuria, unspecified; R82.71 Bacteriuria; E87.8 Other disorders of electrolyte and fluid balance, not elsewhere classified; E78.5 Hyperlipidemia, unspecified; Z90.710 Acquired absence of both cervix and uterus; Z87.891 Personal history of nicotine dependence; Z79.899 Other long term (current) drug therapy; Z82.49 Family history of ischemic heart disease and other diseases of the circulatory system; Z99.81 Dependence on supplemental oxygen; Z68.31 Body mass index [BMI] 31.0-31.9, adult

== ENCOUNTER → 2018-06-27 | Outpatient (CLI) | payer SELFPAY ==
[~2018-06-27] MED LIST changes: +BENADRYL25 M2 PO; +COUMADIN5 M2 PO; +DILTIAZEM HYDR180 M2 PO; +FUROSEMIDE20 M1 PO; +KLOR-CON M2020 ME1 PO; +LOPRESSOR25 MG PO
[2018-06-27 10:01] LABS: INTERNATIONAL NORM RATIO 1.9 (2.0-3.5)
== END | disposition home or self-care (01) ==
LOC: LAB 08:34
PROVIDERS: Internal Medicine
DX: I48.91 Unspecified atrial fibrillation (principal)

== ENCOUNTER 2018-06-29 15:06 | Emergency (ER) | payer SELFPAY ==
[~2018-06-29] VITALS: Ht 152.4 cm; Wt 80.7 kg
[~2018-06-29 15:06] MED LIST changes: -BENADRYL25 M2 PO
[2018-06-29] MEDS ORDERED: BENADRYL25 M2 PO (15:43)
== END 2018-06-29 15:50 | disposition home or self-care (01) ==
LOC: ED 15:06
DX: L27.0 Generalized skin eruption due to drugs and medicaments taken internally (principal); T50.1X5A Adverse effect of loop [high-ceiling] diuretics, initial encounter; T50.3X5A Adverse effect of electrolytic, caloric and water-balance agents, initial encounter; Z79.899 Other long term (current) drug therapy; Z90.710 Acquired absence of both cervix and uterus; Z87.891 Personal history of nicotine dependence; Y92.89 Other specified places as the place of occurrence of the external cause